=== PATIENT | male | born 1990 | race Hispanic/Latino ===

== ENCOUNTER 2020-12-23 14:58 | Emergency (ER) | payer SELFPAY ==
--- NOTE | 2020-12-23 15:19 | Emergency Department Report ---
ED Chest Pain HPI - General Stated Complaint: CHEST PAIN PUI?: No Time Seen by Provider: 12/23/20 15:12 - History of Present Illness Initial Comments: Patient presents with a pleuritic chest pain on the right. He actually started having this a day or 2 ago. It seems to wax and wane. It is primarily right- sided. Today, he was at work and this episode hit him multiple times. He had to sit down and rest multiple times. The pain is sharp and stabbing. Is in the right side of the chest. It feels more anterior than posterior. Pain is worse with inspiration. He has had no cough or congestion. There is no pain or swelling in the legs. There is no recent immobility. There is no trauma. He states that he had a similar episode when he was in fourth grade, but that just went away on its own. - Related Data Previous Rx's Medication Instructions Recorded Last Taken Type Acetaminophen/Codeine [Tylenol 1 tab PO Q6H PRN #30 tab 12/23/20 Unknown Rx /Codeine # 3 tab] Ibuprofen [Motrin] 600 mg PO Q8H PRN #12 tablet 12/23/20 Unknown Rx Allergies Allergy/AdvReac Type Severity Reaction Status Date / Time No Known Allergies Allergy Verified 12/23/20 15:59 Heart Score - HEART Score History: Slightly suspicious EKG: Normal Age: < 45 Risk factors: No known risk factors Troponin: < normal limit (Heart score was not actually completed. This is a hard stop and I cannot eliminate this portion of the chart.) HEART Score: 0 - EKG Read Time Time EKG Completed: 00:01 EKG Read Time: 00:01 ED Review of Systems ROS: Stated complaint: CHEST PAIN Other details as noted in HPI Comment: All other systems reviewed and negative Constitutional: denies: fever Eyes: denies: eye pain ENT: denies: throat pain Respiratory: denies: no symptoms reported, cough Cardiovascular: as per HPI Endocrine: denies: unexplained weight loss Gastrointestinal: denies: abdominal pain Genitourinary: denies: dysuria Musculoskeletal: denies: back pain Skin: denies: rash Neurological: denies: headache Hematological/Lymphatic: denies: easy bruising ED Past Medical Hx - Past Medical History Previous Medical History?: No - Family History Family history: no significant - Social History Smoking Status: Current Every Day Smoker - Medications Home Medications: Home Medications Medication Instructions Recorded Confirmed Last Taken Type Acetaminophen/Codeine [Tylenol 1 tab PO Q6H PRN #30 tab 12/23/20 Unknown Rx /Codeine # 3 tab] Ibuprofen [Motrin] 600 mg PO Q8H PRN #12 tablet 12/23/20 Unknown Rx ED Physical Exam - General Limitations: No Limitations, Other (Pulse ox noted and normal) General appearance: alert, in no apparent distress - Head Head exam: Present: atraumatic, normocephalic, normal inspection - Eye Eye exam: Present: normal appearance, EOMI. Absent: scleral icterus - ENT ENT exam: Present: normal exam, normal external ear exam - Neck Neck exam: Present: normal inspection. Absent: meningismus - Respiratory Respiratory exam: Present: normal lung sounds bilaterally. Absent: respiratory distress, chest wall tenderness - Cardiovascular Cardiovascular Exam: Present: regular rate, normal rhythm - GI/Abdominal GI/Abdominal exam: Present: soft. Absent: tenderness - Extremities Exam Extremities exam: Present: normal capillary refill. Absent: calf tenderness - Back Exam Back exam: Absent: CVA tenderness (R), CVA tenderness (L) - Neurological Exam Neurological exam: Present: alert, oriented X3, CN II-XII intact. Absent: motor sensory deficit - Psychiatric Psychiatric exam: Present: normal affect, normal mood - Skin Skin exam: Present: warm, dry ED Course Vital Signs 12/23/20 12/23/20 14:58 16:39 Temperature 98.6 F Pulse Rate 63 Respiratory 18 16 Rate Blood Pressure 111/65 [Right] - Reevaluation(s) Reevaluation #1: 12/23/20 15:17 EKG was noted. X-ray was ordered. Old records reviewed. Reevaluation #2: 12/23/20 17:09 Patient was discharged ED Medical Decision Making - Lab Data Result diagrams: 12/23/20 15:23 12/23/20 15:23 - EKG Data -: EKG Interpreted by Me - EKG Data 12/23/20 17:09 EKG shows sinus bradycardia with peaked T waves. There is no ST ovation to suggest infarct there is ST depression suggestive of ischemia. Intervals are normal including QRS and QT corrected. There is no old EKG for comparison. - Radiology Data Radiology results: report reviewed - Medical Decision Making Patient presented with a right pleuritic chest pain. Etiology for this is unclear. I do believe this is pleurisy in nature. There is no trauma. There is no evidence of rib fracture. He did not have pneumonia or pneumothorax. There is no pleural effusion. As this is right-sided, not left-sided, I do not believe this represents ACS. Patient has no risk factor for pulmonary embolism. He is not tachycardic or hypoxic. He has no unilateral leg swelling or edema. Wells score is low. Critical Care Time: No Critical care attestation.: If time is entered above; I have spent that time in minutes in the direct care of this critically ill patient, excluding procedure time. ED Disposition Clinical Impression: Pleurisy Disposition: HOME / SELF CARE / HOMELESS Is pt being admited?: No Condition: Stable Additional Instructions: Drink plenty water. Return for problems. Follow-up with your regular doctor for recheck and further management. If you do not have a regular doctor, follow-up with the referral physician. Prescriptions: Ibuprofen [Motrin] 600 mg PO Q8H PRN #12 tablet PRN Reason: Pain Acetaminophen/Codeine [Tylenol /Codeine # 3 tab] 1 tab PO Q6H PRN #30 tab PRN Reason: Pain, Moderate (4-6) Referrals: PRIMARY CAREMD [Referring] - 3-5 Days DES LOCO MD [Staff Physician] - 3-5 Days
--- NOTE | 2020-12-23 15:53 | XRay Report ---
CHEST 2 VIEWS INDICATION / CLINICAL INFORMATION: r cp. COMPARISON: None available. FINDINGS: SUPPORT DEVICES: None. HEART / MEDIASTINUM: No significant abnormality. LUNGS / PLEURA: No significant pulmonary or pleural abnormality. No pneumothorax. ADDITIONAL FINDINGS: No significant additional findings. IMPRESSION: 1. No acute findings. Signer Name: Kenneth Rinaldi MD Signed: 12/23/2020 3:49 PM Workstation Name: [id number]
[2020-12-23 15:54] LABS: Hematocrit 45.6 % (35.5-45.6); Hemoglobin 14.6 gm/dl (11.8-15.2); Mean Corpuscular HGB Conc 32 % (32-34); Mean Corpuscular Volume 92 fl (84-94); Platelet Count 218 K/mm3 (140-440); Red Blood Count 4.96 M/mm3 (3.65-5.03); Red Cell Distribution Width 14.3 % (13.2-15.2)
[2020-12-23 15:56] VITALS: BP 111/65
[2020-12-23 16:45] LABS: Blood Urea Nitrogen 14 mg/dL (9-20); Calcium 9.2 mg/dL (8.4-10.2); Hemolysis Index 9
[2020-12-23 16:48] LABS: BUN/Creatinine Ratio 23
[2020-12-23] MEDS ORDERED: KETOROLAC 30 MG/1 ML INJ IV ONE (17:00)
--- NOTE | 2020-12-25 08:39 | Electrocardiograph Report ---
[facility] Test Date: 2020-12-23 Test Time: 15:08:35 Pat Name: POORNIMA VELÁSQUEZ Department: Room: Gender: M [employer] Operator: GP : 1990 Requested By: DOLLY FERREIRA Order Number: [id number] Reading MD: Blanco Barron Measurements Intervals [place] Rate: 58 P: 73 WI: 165 QRS: 95 QRSD: 97 T: 58 QT: 382 QTc: 376 Interpretive Statements SINUS BRADYCARDIA No previous ECG available for comparison Electronically Signed On 12-25-2020 8:39:00 EST by Blanco Barron
== END 2020-12-23 17:40 | disposition home or self-care (01) ==
LOC: ED 14:58
DX: R09.1 Pleurisy (principal); F17.200 Nicotine dependence, unspecified, uncomplicated
CPT/HCPCS: 36415; 71046; 80048; 85027; 93005; 96374; 99284; J1885